=== PATIENT | female | born 1935 | race Caucasian/White ===

== ENCOUNTER → 2021-02-03 13:09 | Outpatient (CLI) | payer MEDICARE, OTHER, SELFPAY ==
[2021-02-03 16:32] LABS: COVID19 -Nasal RAPID Negative (Negative)
== END ==
PROVIDERS: Family Provider Internal Medicine; PCP Internal Medicine; Visit Provider Physician Assistant
DX: Z01.812 Encounter for preprocedural laboratory examination (principal); Z20.822 Contact with and (suspected) exposure to COVID-19
CPT/HCPCS: 87635; C9803

== ENCOUNTER → 2023-10-22 13:19 | Outpatient (CLI) | payer MEDICARE, OTHER, SELFPAY ==
--- NOTE | 2023-10-22 | DI.MRI.S_ITS ---
PROCEDURE: MR AB PANCREATIC/MRCP PROTOCOL INDICATIONS: HYDROPS OF GALLBLADDER TECHNIQUE: Coronal HASTE through the abdomen, axial 2-D FLASH in- and [id number], and breath-hold T2 FSE with fat saturation through the biliary system and pancreas. Oblique coronal and axial thin-slice HASTE, radial thick-slab HASTE centered on the extrahepatic bile ducts. Intravenous secretin: Not requested. COMPARISON: [place], [place], [place] HIDA WITH CCK, 10/22/2023, 13:41. FINDINGS: Image quality: Excellent. Liver: No solid mass. Benign hepatic cysts, largest measuring 1.5 cm in segment 6. Gallbladder and biliary tree: No gallstones or biliary dilation. Spleen: Normal size. Pancreas: No ductal dilation. Adrenal glands: No adrenal nodules. Kidneys: No hydronephrosis. No solid mass. No complex renal cysts which requires follow-up. Nodes and vessels: No retroperitoneal or mesenteric adenopathy by size criteria. Aorta and inferior vena cava are normal in size. Bowel and peritoneum: Unenhanced bowel loops are normal in caliber. No free fluid. Colonic diverticulosis without evidence of diverticulitis. Lung bases: No basal pleural effusions. Heart size is normal. Bones and soft tissues: No ventral hernias. Bone marrow is of normal overall signal. Convex left curvature. IMPRESSION: Normal MRI of the gallbladder. Dictated by: Jabier Mercado M.D. on 10/22/2023 at 16:02 Approved by: Jabier Mercado M.D. on 10/22/2023 at 16:06
--- NOTE | 2023-10-22 13:29 | DI.NM.S_ITS ---
PROCEDURE: [place] HIDA WITH CCK PHARMACEUTICAL: 5.5 mCi Tc-99m mebrofenin IV; 1.1 mcg CCK IV. INDICATIONS: HYDROPS OF GALLBLADDER TECHNIQUE: Following intravenous administration of Tc-99m mebrofenin, sequential anterior abdominal images were obtained. To evaluate the contractile response of the gallbladder in response to Cholecystokinin (CCK), sincalide (0.02 ?g/kg) was administered by slow intravenous infusion approximately 60 minutes after the administration of the radiopharmaceutical. Sequential imaging was continued for 30 minutes after the start of CCK infusion. Gallbladder ejection fraction was calculated. COMPARISON: None. FINDINGS: Biliary scan: There is normal tracer uptake and excretion by the liver. There is normal visualization of the intrahepatic ducts, common bile duct, and gallbladder. There is normal tracer transit into the duodenum. CCK stimulation: There is normal contractile response of the gallbladder to CCK infusion. The calculated gallbladder ejection fraction is 79% ; normal values are above 35%. It has been shown that any patient abdominal pain after CCK administration is related to the rate of CCK injection, rather than to any underlying gallbladder disease (Clinical Nuclear Medicine 2012; 37: 63-70. Journal of Nuclear Medicine 2014; 55: 1-9). IMPRESSION: Patent cystic duct. Normal gallbladder ejection fraction. Dictated by: Elton Gupta M.D. on 10/22/2023 at 15:36 Approved by: Elton Gupta M.D. on 10/22/2023 at 15:37
== END ==
PROVIDERS: Family Provider Internal Medicine; PCP Family Medicine; Referring Provider Family Medicine; Visit Provider Family Medicine
DX: K82.1 Hydrops of gallbladder (principal)
CPT/HCPCS: 74183; 78227; A9537; J2805